=== PATIENT | female | born 1970 | race Two or more races ===

== ENCOUNTER 2020-01-12 13:05 | Outpatient (CLI) | payer OTHER, SELFPAY ==
--- NOTE | ~2020-01-12 | US_ITS ---
EXAMINATION: US abdomen limited EXAM DATE: 01/12/2020 13:31 INDICATION: Abnormal liver enzymes, generalized abdominal pain. TECHNIQUE: Multiple grayscale and Doppler images of the abdomen right upper quadrant were obtained (b y a technologist who performed the scan) and subsequently reviewed. There is no prior study for gustavo orellana. FINDINGS: The pancreatic head and body are normal in appearance. The pancreatic tail is not visualized. There is echogenic liver parenchyma, hepatic steatosis. There are no focal liver lesions identified. Th ere is no evidence of intrahepatic biliary duct dilation. Portal venous flow was seen in the hepatop edal, normal direction and has normal Doppler waveform. No right-sided hydronephrosis. Common bile duct measures 5 mm, which is normal. The gallbladder wall is normal in thickness, with ex pected amount of distention. No sonographic evidence of pericholecystic fluid. There is cholelithia sis. Technologist performing exam reports patient did not demonstrate sonographic Ortiz's sign. P lease note that this sign is less reliable in patients who have received pain medication. IMPRESSION: 1. Cholelithiasis. Reviewed, dictated and finalized at location B. IMPRESSION: 1. Cholelithiasis.
== END 2020-01-12 13:06 | disposition home or self-care (01) ==
LOC: ANHIMG 13:07
PROVIDERS: PCP Family Medicine; Visit Provider Family Medicine
DX: R74.8 Abnormal levels of other serum enzymes (principal); K80.20 Calculus of gallbladder without cholecystitis without obstruction
CPT/HCPCS: 76705

== ENCOUNTER 2020-01-14 09:50 | Outpatient (CLI) | payer OTHER, SELFPAY ==
[2020-01-15 12:47] LABS: SARS-CoV-2 RNA PCR Negative
== END 2020-01-14 09:51 ==
LOC: ANHCOVIDDT 02-09 06:32
PROVIDERS: PCP Family Medicine; Visit Provider Surgery
DX: Z01.818 Encounter for other preprocedural examination (principal); Z11.59 Encounter for screening for other viral diseases
CPT/HCPCS: 87635; C9803; U0003

== ENCOUNTER 2020-01-14 10:28 | Outpatient (CLI) | payer OTHER, SELFPAY ==
[2020-01-14 11:24] LABS: Alanine Aminotransferase 250 U/L (4-35); Albumin Level 4.4 g/dL (3.5-5.1); Alkaline Phosphatase 117 U/L (38-126); Amylase 105 U/L (30-110); Aspartate Amino Transferase 61 U/L (14-36); Bilirubin,Total 0.4 mg/dL (0.2-1.3); Lipase 113 U/L (23-300)
== END 2020-01-14 10:29 | disposition home or self-care (01) ==
PROVIDERS: PCP Family Medicine; Visit Provider Surgery
DX: K80.10 Calculus of gallbladder with chronic cholecystitis without obstruction (principal); R79.89 Other specified abnormal findings of blood chemistry
CPT/HCPCS: 36415; 80076; 82150; 83690

== ENCOUNTER 2020-01-16 02:33 | Day surgery (SDC) | payer OTHER, SELFPAY ==
[2020-01-14 13:59] VITALS: BMI 28.6
[2020-01-16] VITALS (9 sets, daily range): BP systolic 102–125; BP diastolic 66–78; PULSE 76–95; RESP 16–22; TEMP 36.4–36.6; O2SAT 94–100
--- NOTE | 2020-01-16 10:49 | WPDANESEPPF ---
Anes - Initial Pre Proc Eval Procedure: Operation Date: 01/16/20 14:00 Proposed Procedures p Laparoscopic Cholecystectomy, Possible Intra Operative Cholangiograms, Possible Open - Bryan Portillo MD Date/Time: 01/16/20 10:49 Surgeon: Bryan Portillo MD Pre Op Diagnosis: chronic cholecystitis with cholelithiasis Patient Data Age: 49 Gender: F Height: 1.63 m Weight: 75.75 kg Allergies Allergy/AdvReac Type Severity Reaction Status Date / Time No Known Allergies Allergy Verified 01/16/20 12:10 Home Medications Medication Instructions Recorded Confirmed Type rosuvastatin 20 mg tablet 20 mg PO DAILY 01/07/20 01/16/20 History Patient hx anesthesia problems: none Family hx anesthesia problems: none [facility] Past Medical History Medical History (Updated 01/14/20 @ 09:54 by Krista Saldana) HLD (hyperlipidemia) Vitamin D deficiency Social History Social History Smoking status: Never smoker Second hand tobacco smoke exposure: No Alcohol intake: never Anes - Eval Final PreProcedure Day of Procedure 01/16/20 10:49 Patient weight: overweight Heart: regular rate and rhythm Lungs: clear to auscultation and normal air movement Airway: Mallampati scale class II Neurological: alert and oriented Last oral intake: >/= 8 hours ASA classification: II Emergent: no Anesthetic plan: proceed Anesthesia type and monitoring: general ETT and standard monitoring Informed Consent: The patient's anesthetic plan and its attendant risks and benefits were discussed with the patient/family/POA. Questions were solicited and answers provided to the satisfaction of the patient/family/POA.
--- NOTE | 2020-01-16 12:19 | ECG_ITS ---
Measurements Intervals Boaz Rate: 74 P: 37 VT: 165 QRS: 10 QRSD: 90 T: 52 QT: 389 QTc: 433 Interpretive Statements SINUS RHYTHM NORMAL ECG Electronically Signed On 01-16-2020 13:01:34 CDT by Jose Cartwright D.O.
[2020-01-16] MEDS: ceFAZolin 2 GM/D5W 50 ML 2 GM/50 ML BAG IVPB (13:39)
[2020-01-16] MEDS: BUPIVACAINE/EPINEPHRINE 0.5% 30 ML VIAL INFILTRATE (14:57)
[2020-01-16] MEDS: LACTATED RINGERS 1,000 ML 30 ML IV CONT ×2 (15:45)
--- NOTE | 2020-01-16 15:55 | PM.PROC ---
Procedure Note - Detailed Date of procedure: 01/16/20 Pre-op diagnosis: chronic cholecystitis with cholelithiasis Chronic Cholecystitis with Cholelithiasis Post-op diagnosis: same Procedure performed: Laparoscopic Cholecystectomy Description of procedure: Patient was seen preoperatively in the holding area and risks, benefits and alternatives confirmed. Patient was taken to the operating room and general anesthesia was induced. A time out was then preformed with the surgery team confirming patient and site of surgery. The abdomen was prepped and draped in the usual sterile fashion. Incision was made just below the umbilicus with an 11 blade knife. I placed 2 stay sutures of O- Vicryl on either side of the mid-line fascia beneath the umbilicus and was then able to slide in the [place] cannula through the fascial defect into the peritoneum. First under low flow and then under high flow the abdomen was insufflated with carbon dioxide never exceeding a pressure of 14. Three 5 mm trocars were then introduced under direct vision. The following trocars were introduced under direct vision: a 5 mm in the epigastrium and two 5 mm trocars along the right costal margin laterally in the subcostal area. No significant adhesions to the gallbladder. I then carefully used the L-shaped cautery and the Maryland dissector to dissect out the triangle of Calot. I then was able to dissect out both the cystic duct and cystic artery and identify a window of safety. The gall bladder was grasped and the cystic duct and artery were dissected free and clipped with an 5 mm endo-clip pharmacoepidemiologist. The cystic duct and artery were clipped with use of 2 clips on the patient's side 1 on the gallbladder side utilizing a 5 mm endoclip-pharmacoepidemiologist. The cystic duct was then transected. The cystic artery was also transected at this point. The gall bladder was removed using electrocautery and then removed from the abdomen using a large 10 mm grasper via the umbilical incision. In order to get the large stone out of the abdomen within the gallbladder I did make the fascial defect slightly larger with Dominguez scissors. As we were removing the gallbladder from the umbilicus I noted that there was significant omental adhesion to the underside of the umbilicus. After removing the gallbladder we carefully took down this adhesion and freed the omentum away from the underside of the umbilicus with scissors using 1 of the lateral ports and some cautery. There was small amount of bleeding on the end of the omentum once this was taken down and this was cauterized with use of a [place] dissector and cautery. At the end of the procedure there was no significant bleeding noted. The trocars were removed visualizing hemostasis and the remaining gas evacuated. The large trocar site at the umbilicus was closed with use of the 2 stay sutures of 0 Vicryl mentioned above and also asimple and a figure of 8 O-Vicryl suture. The 2 stay sutures mentioned above on either side of the fascia were also tied together to help approximate this midline fascia. Further local anesthetic was placed into each incision for postop pain control. The skin incisions were closed with subcuticular suture of 4-0 Monocryl. Surgical glue then was applied to all the incisions. Patient tolerated the procedure well was taken to the recovery room in good condition. Anesthesia: JULIANNA Surgeon: Bryan Portillo MD [facility] Attendant: Kristen PAINTER, OR railway yard assistant Estimated blood loss (mL): 10 Drains: No Packing: No Pathology: yes (Gallbladder) Complications: No immediate complications Condition: stable Disposition: PACU Findings: Adhesions under the umbilicus to the omentum. (These were taken down No significant inflammation of the gallbladder. Two fairly large stones within the gallbladder upon removal which required slight enlargement of the fascial incision at the umbilical level.
[2020-01-16] MEDS: ONDANSETRON INJ 4 MG/2 ML VIAL IV PUSH (16:55)
== END 2020-01-16 18:28 | disposition home or self-care (01) ==
PROVIDERS: PCP Family Medicine; Visit Provider Surgery
PROC: 0FT44ZZ Resection of Gallbladder, Percutaneous Endoscopic Approach (ICD-10-PCS; CPT 47562; principal; 2020-01-16 14:00)
DX: K80.10 Calculus of gallbladder with chronic cholecystitis without obstruction (principal); K82.8 Other specified diseases of gallbladder; E78.5 Hyperlipidemia, unspecified; E66.9 Obesity, unspecified; Z68.28 Body mass index [BMI] 28.0-28.9, adult; Z79.899 Other long term (current) drug therapy
CPT/HCPCS: 47562; 36415; 80076; 82150; 83690; 87635; 88304; 93005; A9270; J0131; J0690; J1100; J2250; J2405; J2704; J2710; J3010; J7120; U0003

== ENCOUNTER 2020-01-30 09:43 | Outpatient (CLI) | payer OTHER, SELFPAY ==
[2020-01-30 10:10] LABS: Alanine Aminotransferase 54 U/L (4-35); Albumin Level 4.5 g/dL (3.5-5.1); Alkaline Phosphatase 105 U/L (38-126); Aspartate Amino Transferase 33 U/L (14-36); Bilirubin,Total 0.4 mg/dL (0.2-1.3)
== END 2020-01-30 09:44 | disposition home or self-care (01) ==
LOC: ANHLAB 09:44
PROVIDERS: PCP Family Medicine; Visit Provider Nurse Practitioner Family
DX: K80.10 Calculus of gallbladder with chronic cholecystitis without obstruction (principal)
CPT/HCPCS: 36415; 80076

== ENCOUNTER 2020-03-23 14:51 | Outpatient (CLI) | payer OTHER, SELFPAY ==
--- NOTE | ~2020-03-23 | MM_ITS ---
EXAMINATION: MM screening ozzie BI w erika HISTORY: Screening TECHNIQUE: Craniocaudal and mediolateral oblique 3-D tomosynthesis images were obtained and synthetic 2-D images were generated. CAD analysis was submitted and interpreted. COMPARISON: No prior mammogram is available for comparison at this institution. BREAST PARENCHYMAL COMPOSITION: Breast composed of scattered areas of fibroglandular density FINDINGS: There are probable benign bilateral breast asymmetries/nodules and calcifications compariso n no previous outside mammograms recommended to assess stability. IMPRESSION: 1. Bilateral breast asymmetries and calcifications. 2. Comparison to previous outside mammograms recommended. BI-RADS Category 0: Incomplete: Needs additional imaging evaluation. Reviewed, dictated and finalized at location A.
== END 2020-03-23 14:52 | disposition home or self-care (01) ==
LOC: ANHIMG 14:53
PROVIDERS: PCP Family Medicine; Visit Provider Surgery
DX: Z12.31 Encounter for screening mammogram for malignant neoplasm of breast (principal); R92.8 Other abnormal and inconclusive findings on diagnostic imaging of breast
CPT/HCPCS: 77063; 77067

== ENCOUNTER → 2020-04-27 09:30 | Outpatient (CLI) | payer OTHER, SELFPAY ==
--- NOTE | ~2020-04-27 | MMUS_ITS ---
EXAMINATION: MM diagnostic ozzie LT w erika, US breast LT complete HISTORY: Follow-up left breast masses TECHNIQUE: Additional 3-D tomosynthesis images of the left breast were performed and synthetic 2-D im ages were generated. CAD analysis was submitted and interpreted. High resolution left breast ultrasou nd was performed. COMPARISON: Comparison to multiple prior studies sequentially, with oldest reviewed study dated 02/14. BREAST PARENCHYMAL COMPOSITION: The breasts are heterogenously dense, which may obscure small masses. FINDINGS: MAMMOGRAPHIC FINDINGS: There are masses in the subareolar location of the left breast. There are multiple punctate calcifica tions, some of which layer, most likely secondary to benign fibrocystic disease. ULTRASOUND: There are multiple simple simple and complicated cysts of the left breast scattered throughout the br easts, corresponding to the mammographic abnormalities. The largest cyst located at 4:00, 4 cm from t he nipple measuring 9 mm. No suspicious masses to suggest malignancy. IMPRESSION: 1. No evidence for malignancy in the left breast. Benign findings. 2. Routine yearly screening mammogram and regular clinical breast examination are recommended. BI-RADS Category 2: Benign finding(s). Reviewed, dictated and finalized at location A. IMPRESSION: 1. No evidence for malignancy in the left breast. Benign findings. 2. Routine yearly screening mammogram and regular clinical breast examination a re recommended. BI-RADS Category 2: Benign finding(s).
== END ==
PROVIDERS: PCP Family Medicine; Visit Provider Physician Assistant
DX: R92.8 Other abnormal and inconclusive findings on diagnostic imaging of breast (principal)
CPT/HCPCS: 76641; 77061; 77065; G0279

== ENCOUNTER → 2020-05-13 10:57 | Outpatient (CLI) | payer OTHER, SELFPAY ==
--- NOTE | ~2020-05-13 | XR_ITS ---
XR lumbar spine 2-3V 05/13/2020 11:46 Indication: Low back pain Procedure: 3 views lumbar spine Comparison: No prior studies for comparison. Findings: No fracture or traumatic malalignment. Vertebral body heights are maintained. There are fac et hypertrophic changes at L4-5 and L5-S1. There is disc narrowing at L5-S1. No evidence for spondylo listhesis. There are cholecystectomy clips. Sacral foramen are symmetric Impression: 1: Mild lumbar spondylosis. Reviewed, dictated and finalized at location B. Impression: 1: Mild lumbar spondylosis.
--- NOTE | ~2020-05-13 | XR_ITS ---
XR foot LT min 3V 05/13/2020 11:46 INDICATION: Left foot pain PROCEDURE: 4 views left foot COMPARISON: No prior studies for comparison. FINDINGS: Fracture, dislocation or subluxation is not identified. Lisfranc joint intact. The soft tis sues appear within normal limits. No foreign bodies are identified. IMPRESSION: 1: NO ACUTE BONE OR JOINT ABNORMALITY IDENTIFIED. Reviewed, dictated and finalized at location B.
== END ==
PROVIDERS: PCP Family Medicine
DX: M79.672 Pain in left foot (principal); M47.896 Other spondylosis, lumbar region
CPT/HCPCS: 72100; 73630

== ENCOUNTER → 2020-05-25 12:25 | Outpatient (CLI) | payer OTHER, SELFPAY ==
--- NOTE | ~2020-05-25 | DEXA_ITS ---
Bone Density Report Name: Cintia Hidalgo Age: 49 Sex: Female Ethnicity: White Date of : 1970 Indication: postmenopausal; screening for osteoporosis; height loss; Referring Provider: Madeline Remy Study: Bone densitometry was performed. Exam Date: May 25, 2020 Accession number: [id number] Bone Density: Region BMD T-score Z-score Classification AP Spine (L1-L4) 1.038 -0.1 0.8 Normal Femoral Neck (Left) 0.794 -0.5 0.4 Normal Total Hip (Left) 0.944 0.0 0.6 Normal Femoral Neck (Right) 0.730 -1.1 -0.2 Osteopenia Total Hip (Right) 0.957 0.1 0.7 Normal Total Hip Mean 0.951 0.1 0.7 Normal World Health Organization criteria for BMD impression classify patients as: Normal (T-score at or above -1.0), Osteopenia (T-score between -1.0 and -2.5), or Osteoporosis (T-score at or below -2.5). 10-year Fracture Risk(1): Major Osteoporotic Fracture 4.6% Hip Fracture 0.2% Reported Risk Factors: [place] (), Neck BMD=0.730, BMI=29.7 (1) FRAX(R) Version 3.08. Fracture probability calculated for an untreated patient. Fracture probability may be lower if the patient has received treatment. Clinical Information Provided by Patient: Has used the following medications: Calcium Patient maximum height was 64 Menopause Age: 46 No regular weight bearing exercise Does not regularly consume dairy products Drinks caffeinated beverages Onset of menses at age 9 Number of children 2 Impression: The patient has low bone mass, based on the Right Femoral Neck T-score. The patient has an estimated ten-year risk of hip fracture of 0.2% and an estimated ten-year risk of major fracture of 4.6%, based on the WHO FRAX algorithm. Discussion: BONE DENSITY IS LOW AT ONE OR MORE SKELETAL SITES. This patient's lowest T-score is low at one or more skeletal sites. It meets the World Health Organization's (WHO) criteria for ?low bone mass? (T-score between -1.0 and -2.5). The patient's 10-year risk of fracture as calculated by FRAX is less than the threshold where pharmacological therapy is recommended by the National Osteoporosis Foundation (NOF). However, all treatment decisions require clinical judgment and consideration of individual patient factors, including patient preferences, comorbidities, previous drug use, risk factors not captured in the FRAX model (e.g., frailty, falls, vitamin D deficiency, increased bone turnover, interval significant decline in bone density) and possible under or overestimation of fracture risk by FRAX. The patient should follow a healthful lifestyle (good nutrition with adequate calcium and vitamin D, and appropriate weight-bearing exercise). Follow-Up: Consider repeating this study in 2 to 3 years to reassess this patient's status, or sooner if there is some new clinical indica
== END ==
PROVIDERS: PCP Family Medicine; Visit Provider Physician Assistant
DX: Z78.0 Asymptomatic menopausal state (principal); M85.851 Other specified disorders of bone density and structure, right thigh
CPT/HCPCS: 77080

== ENCOUNTER 2021-11-04 20:38 | Emergency (ER) | payer BC, SELFPAY ==
--- NOTE | ~2021-11-04 | CT_ITS ---
EXAMINATION: CT brain wo con DATE: 11/04/2021 21:30 INDICATION: Generalized headache. Nausea. She indicated TECHNIQUE: Computed tomography (CT) of the head was performed without intravenous contrast. The mA wa s adjusted according to patient size. Iterative reconstruction technique was employed. Exam dose: 60 5.33 mGy-cm total exam DLP. COMPARISON: None FINDINGS: No intracranial mass lesion or hemorrhage or cerebrovascular accident. No midline shift or mass effect. Normal ventricular size. No subdural or epidural hematoma. IMPRESSION: No significant abnormality Reviewed, dictated and finalized at Location A. Reviewed, dictated and finalized at location A. IMPRESSION: No significant abnormality
[2021-11-04 20:43] VITALS: BP 143/90; PULSE 89; RESP 16; TEMP 36.3; O2SAT 99
--- NOTE | 2021-11-04 21:11 | ED.HA ---
HPI - Headache General Chief Complaint: Headache Stated Complaint: headache, dizzy Time Seen by Provider: 11/04/21 20:57 Source: patient Mode of arrival: ambulatory Limitations: no limitations History of Present Illness HPI Narrative: 51-year-old female presents emergency room accompanied by her daughter. She comes in secondary to a diffuse headache. 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 About 3:00 in afternoon she developed a headache more in the frontal region. She has some associated dizziness when she describes a spinning sensation. She did not went home after work and the headache just became more diffuse in nature and her entire head hurts. Mostly in the occipital region more left-sided than right. No neck stiffness however when she moves her head forward makes her headache worse. She denies any prior fevers but is she had little chills earlier today. She states she is comfortable as long she is lying still looking forward but she tries to change position or move her head as it exacerbates her dizzy sensation. Related Data Allergies Allergy/AdvReac Type Severity Reaction Status Date / Time Sulfa (Sulfonamide Allergy Mild Unknown Verified 11/04/21 20:46 Antibiotics) Review of Systems Review of Systems: CONSTITUTIONAL: Denies fever, chills, or sweats. EYES: Denies visual changes, redness, or discharge. ENT: Denies rhinorrhea, congestion, sore throat, or otalgia. CARDIOVASCULAR: Denies chest pain, palpitations, or edema. RESPIRATORY: Denies cough or dyspnea. GASTROINTESTINAL: Denies abdominal pain, nausea, vomiting, or diarrhea. GENITOURINARY: Denies dysuria or hematuria. SKIN: Denies rash or itching. MUSCULOSKELETAL: Denies back pain, joint pain, or myalgia. NEUROLOGIC: Patient has a headache as well as a sensation of spinning. Denies any focal numbness or weakness to either upper or lower extremities. PSYCHIATRIC: Denies anxiety or depression. [facility] Past Medical History Medical History (Updated 11/04/21 @ 22:26 by Ramana Crump DO) HLD (hyperlipidemia) Vitamin D deficiency Surgical History Surgical History H/O tubal ligation History of laparoscopic cholecystectomy 01/16/20 Family History Family History Mother Family history of premature coronary heart disease, Onset Age: 67 Sibling Diabetes mellitus Father Family history of hypercholesterolemia Hypertension Cerebrovascular accident, Onset Age: 74 Family history of coronary artery disease Social History Social History Smoking status: Never smoker Second hand tobacco smoke exposure: No Alcohol intake: never Substance use: never Substance use type: does not use Exam Narrative: APPEARANCE: Well appearing, no pain or distress, well-nourished. Head normocephalic and atraumatic. EYES: PERRLA/EOMI, conjunctivae very clear. Mild nystagmus with rightward gaze NOSE: Normal with no drainage EARS:TMS clear Frankie Aragon, with good light reflex. THROAT: Pharynx clear, no exudate. NECK: Supple. No adenopathy, no masses. RESPIRATORY: Airway patent, respirations nonlabored. Clear to auscultation bilaterally, no rales, rhonchi, wheezing. CARDIOVASCULAR: Regular rate and rhythm without murmurs, rubs, or gallops. ABDOMINAL: Soft, nontender, nondistended, no hepatosplenomegaly Musculoskeletal: Moves all extremities. Strength/ROM intact, No edema, No calf tenderness. NEURO: Alert. Cranial nerves II through XII intact. Normal gait. Good coordination. Nonfocal examination. Reproduction of the dizziness with movement of her head SKIN:: Warm, dry. Normal Color PSYCHIATRIC: Normal affect/mood, normal interaction Course Vital Signs Vital signs: Vital Signs Temperature 97.4 F L 11/04/21 20:43 Pulse Rate 89 11/04/21 20:43 Respira
[2021-11-04] MEDS: MECLIZINE HCL 25 MG TABLET PO (21:34)
[2021-11-04] MEDS: KETOROLAC 30 MG/ML VIAL (*BKC) IV PUSH (21:34)
[2021-11-04 21:36] LABS: Basophils Percent Auto 0.4 % (0.2-1.2); Eosinophils Absolute Auto 0.1 K/mm3 (0-0.3); Eosinophils Percent Auto 1.5 % (0-4.4); Hematocrit 41.5 % (37.0-47.0); Hemoglobin 13.5 g/dL (12.0-15.0); Immature Granulocyte Absolute 0.01 K/mm3 (0.00-0.031); Immature Granulocyte Percent A 0.1 % (0-0.5); Lymphocytes Absolute Auto 2.48 K/mm3 (0.9-3.2); Lymphocytes Percent Auto 32.8 % (18.3-44.2); Mean Corpuscular HGB Conc 32.5 g/dl (32-36); Mean Corpuscular Hemoglobin 29.3 pg (26-34); Mean Platelet Volume 8.8 fl (7.4-10.4); Monocytes Absolute Auto 0.5 K/mm3 (0.1-0.6); Monocytes Percent Auto 6.2 % (2.6-8.5); Neutrophils Absolute Auto 4.5 K/mm3 (1.3-6.7); Platelet Count Result 272 k/mm3 (150-375); Red Blood Count 4.61 M/mm3 (4.2-5.4); White Blood Count 7.6 K/mm3 (4.5-10.0)
[2021-11-04 21:48] LABS: Alanine Aminotransferase 45 U/L (4-35); Albumin Level 4.7 g/dL (3.5-5.1); Alkaline Phosphatase 75 U/L (38-126); Anion Gap 11 mmol/L (8-16); Aspartate Amino Transferase 39 U/L (14-36); Bilirubin,Total 0.2 mg/dL (0.2-1.3); Blood Urea Nitrogen 11 mg/dL (7-17); Calcium 9.1 mg/dL (8.4-10.2); Carbon Dioxide 25 mmol/L (22-30); Chloride 101 mmol/L (98-107); Estimated CRCL calculation 111 ml/min; Estimated Glomerular Filt Rate > 60; Glucose 183 mg/dL (65-110); Potassium 3.9 mmol/L (3.4-5.0); Sodium 137 mmol/L (137-145)
[2021-11-04 22:40] VITALS: BP 129/89; PULSE 70; RESP 16; O2SAT 99
== END 2021-11-04 22:40 | disposition home or self-care (01) ==
PROVIDERS: Emergency Provider Emergency Medicine; PCP Family Medicine
DX: R51.9 Headache, unspecified (principal); R42 Dizziness and giddiness; E78.5 Hyperlipidemia, unspecified; E55.9 Vitamin D deficiency, unspecified
CPT/HCPCS: 36415; 70450; 80053; 85025; 96374; 99284; A9270; J1885

== ENCOUNTER 2021-11-19 08:21 | Outpatient (CLI) | payer BC, SELFPAY ==
[2021-11-19 09:21] LABS: Hematocrit 42.9 % (37.0-47.0); Hemoglobin 13.5 g/dL (12.0-15.0); Mean Corpuscular HGB Conc 31.5 g/dl (32-36); Mean Corpuscular Hemoglobin 28.7 pg (26-34); Mean Corpuscular Volume 91.3 fl (80-100); Mean Platelet Volume 8.8 fl (7.4-10.4); Platelet Count Result 276 k/mm3 (150-375); Red Cell Distribution Width 13.1 % (11.5-14.5); White Blood Count 5.2 K/mm3 (4.5-10.0)
[2021-11-19 09:41] LABS: Cholesterol 168 mg/dL (0-200); HDL Direct 52 mg/dL; Triglycerides 248 mg/dL (<150)
[2021-11-19 09:52] LABS: LDL Cholesterol Direct 63 mg/dL
[2021-11-19 10:02] LABS: Free T4 Free Thyroxine 0.95 ng/mL (0.78-2.19)
[2021-11-22 23:35] LABS: Vitamin D 1,25 (OH)2 Total 60 pg/mL (18-72); Vitamin D2 1,25 (OH)2 <8 pg/mL; Vitamin D3 1,25 (OH)2 60 pg/mL
[2021-11-23 20:06] LABS: FSH 82.9 mIU/mL (***); LH 34.4 mIU/mL (***); Progesterone <0.2 ng/mL (***)
== END 2021-11-19 08:22 | disposition home or self-care (01) ==
LOC: ANHLAB 08:22
PROVIDERS: PCP Family Medicine; Visit Provider Physician Assistant
DX: R53.83 Other fatigue (principal); E53.8 Deficiency of other specified B group vitamins; E55.9 Vitamin D deficiency, unspecified; Z13.220 Encounter for screening for lipoid disorders
CPT/HCPCS: 36415; 80061; 82607; 82652; 82672; 83001; 83002; 84144; 84439; 84443; 85027

== ENCOUNTER 2022-05-18 15:50 | Outpatient (CLI) | payer BC, SELFPAY ==
--- NOTE | ~2022-05-18 | MM_ITS ---
EXAMINATION: MM screening ozzie BI w erika HISTORY: Screening mammogram TECHNIQUE: Craniocaudal and mediolateral oblique 3-D tomosynthesis images were obtained and synthetic 2-D images were generated. CAD analysis was submitted and interpreted. COMPARISON: 04/27/2020, 03/23/2020, 04/30/2017 BREAST PARENCHYMAL COMPOSITION: There are scattered areas of fibroglandular density. FINDINGS: Scattered benign-appearing calcifications are present. No suspicious mass, calcification, o r architectural distortion are identified in either breast to suggest malignancy. There has been no s uspicious interval change. IMPRESSION: 1. No mammographic evidence of malignancy. 2. Recommend routine screening mammography in one year. BI-RADS Category 2: Benign finding(s). Reviewed, dictated and finalized at location A.
== END 2022-05-18 15:51 | disposition home or self-care (01) ==
PROVIDERS: PCP Family Medicine; Visit Provider Nurse Practitioner
DX: Z12.31 Encounter for screening mammogram for malignant neoplasm of breast (principal)
CPT/HCPCS: 77063; 77067

== ENCOUNTER → 2022-06-30 13:03 | Outpatient (CLI) | payer BC, SELFPAY ==
--- NOTE | ~2022-06-30 | US_ITS ---
EXAMINATION: US pelvic complete DATE: 06/30/2022 14:33 INDICATION: Postmenopausal bleeding Comparison:No prior studies for comparison. TECHNIQUE: Multiple transabdominal sonographic images of the pelvis performed. FINDINGS: The uterus measures 5.7 x 4.2 x 4.1 cm. The endometrial complex measures 9 mm. The ovaries are not identified, likely atrophic. There is no free fluid in the pelvis. There are no abnormal masses seen on either side. IMPRESSION: 1. . Thickened endomtrial complex. The differential diagnosis includes endometrial hyperplasia, polyp and carcinoma. Biopsy is recommended. Reviewed, dictated and finalized at location A. 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 . Thickened endomtrial complex. The differential diagnosis includes endometr ial hyperplasia, polyp and carcinoma. Biopsy is recommended.
== END ==
PROVIDERS: PCP Family Medicine; Visit Provider Family Medicine
DX: N95.0 Postmenopausal bleeding (principal)
CPT/HCPCS: 76856

== ENCOUNTER 2023-01-09 12:00 | Outpatient (CLI) | payer BC, SELFPAY ==
--- NOTE | ~2023-01-09 | XR_ITS ---
AP and lateral views of the right hip Clinical history: Pain Findings: No acute fracture or dislocation is seen. Osseous alignment is anatomic. The right hip join t and right SI joint are preserved. Soft tissues are unremarkable. Impression: No significant abnormality is seen. Reviewed, dictated and finalized at location . Impression: No significant abnormality is seen.
== END 2023-01-09 12:01 | disposition home or self-care (01) ==
PROVIDERS: PCP Family Medicine; Visit Provider Physician Assistant
DX: M25.559 Pain in unspecified hip (principal)
CPT/HCPCS: 73502